=== PATIENT | female | born 1975 | race Caucasian/White ===

== ENCOUNTER 2017-02-15 04:25 | Inpatient (IN) | payer SELFPAY ==
[~2017-02-15] VITALS: Ht 165.1 cm; Wt 102.1 kg
[2017-02-15] MEDS ORDERED: ONDANSETRON HCL 4MG/2ML VIAL IV STA (05:09)
[2017-02-15] MEDS ORDERED: LORAZEPAM 2MG/ML CPJ IV STA (05:09)
[2017-02-15] MEDS ORDERED: SODIUM CHLORIDE 0.9% 1,000 ML IV ONE (05:09)
[2017-02-15] MEDS ORDERED: LEVETIRACETAM 500MG PREMIX 100 ML IV ONE (05:15)
[2017-02-15 05:51] LABS: BG BASE EXCESS -0.7 mmol/L (-2.0-2.0); BG CARBOXYHEMOGLOBIN 1.6 % (0.5-1.5); BG DEOXYHEMOGLOBIN 5.2 % (0.0-5.0); BG FRACTION INSPIRED OXYGEN 21; BG HCO3 ACT 24.3 mmol/L (22.0-26.0); BG METHEMOGLOBIN 0.1 % (0.0-1.5); BG OXYGEN SATURATION 94.7 % (92.0-98.5); BG OXYHEMOGLOBIN 93.1 % (94.0-97.0); BG PCO2 41.1 mmHg (35.0-45.0); BG PH 7.389 (7.350-7.450); BG PO2 79.1 mmHg (75.0-100.0); BG SAMPLE SITE LEFT RADIAL; BG VENT MODE ROOM AIR
[2017-02-15] MEDS ORDERED: LORAZEPAM 2MG/ML CPJ IV ONE (06:00)
[2017-02-15 06:10] LABS: BASOPHILS % 1.1 % (0.0-2.0); EOSINOPHILS % 1.8 % (0.0-5.0); HEMATOCRIT. 28.5 % (36.0-48.0); MEAN CORPUSCULAR HEMOGLOBIN 22.4 pg (28.0-32.0); MEAN CORPUSCULAR VOLUME 70.9 fL (81.0-99.0); MEAN PLATELET VOLUME 6.9 fl (7.4-10.4); MONOCYTES % 7.9 % (2.0-8.0); NEUTROPHILS % 66.2 % (40.0-76.0); PLATELET 316 x1000/uL (130-400); RED BLOOD CELL COUNT 4.02 mill/uL (4.2-5.4); RED CELL DISTRIBUTION WIDTH 18.6 % (11.6-14.6)
[2017-02-15 06:29] LABS: CLARITY URINE CLEAR (CLEAR); COLOR URINE YELLOW (YELLOW); GLUCOSE URINE NEGATIVE (NEGATIVE); KETONES URINE NEGATIVE (NEGATIVE); LEUKOCYTE ESTERASE URINE NEGATIVE (NEGATIVE); NITRITE URINE NEGATIVE (NEGATIVE); OCCULT BLOOD URINE 2+ (NEGATIVE); PROTEIN URINE NEGATIVE (NEGATIVE); UROBILINOGEN URINE 0.2 E.U./dL (0.2-1.0)
[2017-02-15 06:46] LABS: *AMPHETAMINES SCREEN URINE NEGATIVE (NEGATIVE); *BARBITURATES SCREEN URINE NEGATIVE (NEGATIVE); *COCAINE SCREEN URINE NEGATIVE (NEGATIVE); CANNABINOID URINE SCREEN NEGATIVE (NEGATIVE); METHADONE URINE SCREEN NEGATIVE (NEGATIVE); OPIATES URINE SCREEN NEGATIVE (NEGATIVE); PHENCYCLIDINE URINE SCREEN NEGATIVE (NEGATIVE)
[2017-02-15 06:47] LABS: CARBON DIOXIDE 27 mEq/L (21-32); CHLORIDE 105 mEq/L (98-107); ETHANOL BLOOD < 10 mg/dL
[2017-02-15 06:48] LABS: CARBAMAZEPINE 0.8 ug/mL (4-12)
[2017-02-15 06:48] LABS: *BENZODIAZEPINES SCREEN URINE PRESUMTIVE POSITIVE (NEGATIVE)
[2017-02-15 10:00] VITALS: BP 110/55
[2017-02-15] MEDS ORDERED: NA PHOS,M-B/NA PHOS,DI-BA ENEMA 118ML PR PRN (10:45)
[2017-02-15] MEDS ORDERED: MAGNESIUM/ALUMINUM HYDROXIDE/SIMETHICONE 30ML UDC PO PRN (10:45)
[2017-02-15] MEDS ORDERED: DOCUSATE SODIUM 100MG CAPSULE PO PRN (10:45)
[2017-02-15] MEDS ORDERED: KETOROLAC 30MG/ML VIAL IV PRN (10:45)
[2017-02-15] MEDS ORDERED: CLONIDINE 0.1MG TABLET PO PRN (10:45)
[2017-02-15] MEDS ORDERED: ACETAMINOPHEN 325MG TABLET PO PRN (10:45)
[2017-02-15] MEDS ORDERED: NITROGLYCERIN 0.4MG TABLET SL SL PRN (10:45)
[2017-02-15] MEDS ORDERED: IPRATROPIUM/ALBUTEROL 0.5-3(2.5)MG/3ML NEB INH PRN (10:45)
[2017-02-15] MEDS ORDERED: ONDANSETRON HCL 4MG/2ML VIAL IV PRN (10:45)
[2017-02-15] MEDS: LORAZEPAM 0.5MG TABLET PO PRN ×2 (11:11→19:42)
[2017-02-15 12:00] VITALS: BP_SYST 168; BP_SYST 97; BP_DIAS 55; BP_DIAS 83
[2017-02-15] MEDS: SODIUM CHLORIDE 0.9% 1,000 ML IV SCH (13:13)
[2017-02-15] MEDS: LEVETIRACETAM 500 MG in SODIUM CHLORIDE 0.9% 100 ML IV SCH (13:14)
[2017-02-15] MEDS: ENOXAPARIN 30MG/0.3ML SYR SUBCUT SCH ×2 (13:14→21:40)
[2017-02-15] MEDS ORDERED: KETOROLAC 15MG/ML VIAL IV PRN (14:27)
[2017-02-15 16:00] VITALS: BP 81/48
[2017-02-15] MEDS ORDERED: ZOLPIDEM TARTRATE 5MG TABLET PO PRN (18:00)
[2017-02-15] MEDS ORDERED: LORA2VIA33 PO (18:37)
[2017-02-15] MEDS ORDERED: PARO30TA76 PO (18:37)
[2017-02-15] MEDS ORDERED: HYDR10SY11 PO (18:37)
[2017-02-15 20:00] VITALS: BP 100/60
[2017-02-15] MEDS: CARBAMAZEPINE 200MG TABLET PO SCH (21:00)
[2017-02-16] VITALS: BP 96/60
[2017-02-16] MEDS: LEVETIRACETAM 500 MG in SODIUM CHLORIDE 0.9% 100 ML IV SCH (00:01)
[2017-02-16] MEDS: SODIUM CHLORIDE 0.9% 1,000 ML IV SCH (00:01)
[2017-02-16 04:00] VITALS: BP 93/58
[2017-02-16 08:30] VITALS: BP 93/47
[2017-02-16] MEDS ORDERED: PANTOPRAZOLE SODIUM 40 MG/VIAL IV SCH (09:00)
[2017-02-16] MEDS: CARBAMAZEPINE 200MG TABLET PO SCH (09:00)
[2017-02-16] MEDS: LORAZEPAM 0.5MG TABLET PO PRN (09:25)
[2017-02-16] MEDS: ENOXAPARIN 30MG/0.3ML SYR SUBCUT SCH (09:27)
[2017-02-16 10:58] VITALS: BP_SYST 110; BP_SYST 93; BP_DIAS 47; BP_DIAS 69
[2017-02-16 12:00] VITALS: BP 114/65
== END 2017-02-16 14:30 | disposition home or self-care (01) | DRG 53 ==
LOC: ER 04:30 → 5WST 06:03 → EDBEDREQ 06:25 → ENRESERV 07:40
PROVIDERS: ADMIT Internal Medicine; ATTEND Internal Medicine
DX: R56.9 Unspecified convulsions (principal); E44.0 Moderate protein-calorie malnutrition; E66.01 Morbid (severe) obesity due to excess calories; F19.10 Other psychoactive substance abuse, uncomplicated; D64.9 Anemia, unspecified; Z76.5 Malingerer [conscious simulation]; Z68.37 Body mass index [BMI] 37.0-37.9, adult
CPT/HCPCS: 36415; 36600; 70450; 71010; 80053; 80156; 80305; 80307; 80329; 81001; 82375; 82805; 83036; 85025; 93005; 96361; 96374; 96375; 96376; 97163; 99285; C1893; C9113; G0482; J1650; J1953; J2060; J2405; J7030; J7050